=== PATIENT | female | born 1935 | race Caucasian/White ===

== ENCOUNTER 2016-11-19 12:25 | Inpatient (IN) | payer OTHER ==
[~2016-11-19] VITALS: Ht 149.9 cm; Wt 86.1 kg
[~2016-11-19 12:25] MED LIST: ADVAIR HFA120 INHALA IH; AMOX TR-K CLV1 EAC4 PO; AMPICILLIN SODIU2 GM IV; AUGMENTIN875 MG PO; CLEAR EYES ITCH15 ML BOTH EYES; CLEOCIN300 MG PO; COLCRYS0.6 MG PO; CORDARONE200 MG PO; COUMADIN1 MG PO; COUMADIN3 MG PO; COZAAR100 MG PO; FLORASTOR250 MG PO; GENTAMICIN SULFA5 ML BOTH EYES; GUAIFENESI100 MG/5 M PO; INCRUSE ELLI62.5 MCG IH; K-DUR20 MEQ PO; LASIX40 MG PO; LOPRESSOR25 MG PO; LOVENOX80 MG/0.8 SC; MECLIZINE HCL12.5 M1 PO; OCUVITE TABLET1 EACH PO; PRAVASTATIN SOD20 MG PO; PRAVASTATIN SOD40 MG PO; PREDNISONE20 MG PO; PROAIR HFA8.5 GM IH; RANITIDINE HCL150 MG PO; SENNA-TIME S T1 EACH PO; SPIRIVA RESPIMAT4 GM IH; TYLENOL REGULA325 MG PO; VANCOMYCIN HCL1 GM IV; VANCOMYCIN1 GM/150 M IV; VENTOLIN HFA18 GM IH; WARFARIN SODIUM1 MG PO; ZOLPIDEM TARTRAT5 MG PO
[2016-11-19 13:32] LABS: CHLORIDE 100 mEq/L (99-109); POTASSIUM 5.6 mEq/L (3.7-5.4); SODIUM 134 mEq/L (136-147)
[2016-11-19 13:34] LABS: GLUCOSE 149 mg/dL (70-99)
[2016-11-19 13:35] LABS: ANION GAP 12 MEQ/L (2-14); HEMATOCRIT 36.1 % (36.0-46.0); MCHC 32.1 G/DL (30.0-36.0); MCV 87.2 FL (83-99); RBC DIS.WIDTH-CV 18.7 % (11.8-14.6); RBC DIS.WIDTH-SD 58.8 % (39-53); RED BLOOD COUNT 4.14 M/uL (3.80-5.20); WHITE BLOOD COUNT 6.9 K/uL (4.1-10.2)
[2016-11-19 13:38] LABS: GFR ESTIMATE (CALCULATED) 13 mL/min/
[2016-11-19 14:06] LABS: UREA NITROGEN (BUN) 80 mg/dL (9-23)
[2016-11-19 14:20] LABS: TROP-I INTERPRETATION NEGATIVE; TROPONIN-I 0.05 ng/mL (0.0-0.30)
[2016-11-19 14:42] LABS: HEMATOLOGY COMMENT 1 SMEAR COMPATIBLE; PLATELET COUNT 133 K/uL (156-360)
[2016-11-19 16:11] LABS: PTT 44.9 (25-32)
[2016-11-19 16:18] LABS: INTER. NORMALIZED RATIO 4.2; PROTHROMBIN TIME 44.2 (9.2-11.2)
[2016-11-19] MEDS ORDERED: PRAVASTATIN SOD40 MG PO (16:23)
[2016-11-19] MEDS ORDERED: POTASSIUM CHLO10 ME4 PO (16:24)
[2016-11-19] MEDS ORDERED: PRESERVISION T1 EACH PO (16:24)
[2016-11-19] MEDS ORDERED: GENTAMICIN SULFA5 ML RIGHT EYE (16:26)
[2016-11-19] MEDS ORDERED: CEPHALEXIN500 MG PO (16:26)
[2016-11-19] MEDS ORDERED: CARVEDILOL12.5 MG PO (16:27)
[2016-11-19] MEDS ORDERED: MUPIROCIN15 GM TP (16:27)
[2016-11-19] MEDS ORDERED: BUMETANIDE1 MG PO (16:27)
[2016-11-19] MEDS ORDERED: PROTONIX40 MG PO (16:27)
[2016-11-19 18:17] VITALS: BP 156/90
[2016-11-19 20:47] VITALS: BP 83/47
[2016-11-19 23:25] VITALS: BP 87/50
[2016-11-19 23:54] VITALS: BP 62/43
[2016-11-20] VITALS (18 sets, daily range): BP systolic 74–113; BP diastolic 35–55
[2016-11-20 07:33] LABS: ALKALINE PHOSPHATASE 113 IU/L (3-129); ANION GAP 11 MEQ/L (2-14); CHLORIDE 101 MEQ/L (99-109); GFR ESTIMATE (CALCULATED) 12 mL/min/; SAMPLE HEMOLYSIS CHECK 0; SAMPLE ICTERIC CHECK 0; SAMPLE LIPEMIA CHECK 0; SODIUM 134 MEQ/L (136-147); UREA NITROGEN (BUN) 76 mg/dL (9-23)
[2016-11-20 07:34] LABS: GLUCOSE 86 mg/dL (70-99)
[2016-11-20 07:43] LABS: PROTHROMBIN TIME 48.7 (9.2-11.2)
[2016-11-20 07:46] LABS: INTER. NORMALIZED RATIO 4.6
[2016-11-20 08:21] LABS: HEMATOCRIT 33.7 % (36.0-46.0); MCH 27.6 PG (29.0-34.0); MCHC 31.2 G/DL (30.0-36.0); MCV 88.7 FL (83-99); PLATELET COUNT UNABLE TO REPORT K/uL (156-360); RBC DIS.WIDTH-CV 18.9 % (11.8-14.6); RBC DIS.WIDTH-SD 60.6 % (39-53); WHITE BLOOD COUNT 5.8 K/uL (4.1-10.2)
[2016-11-20 10:28] LABS: TROP-I INTERPRETATION NEGATIVE; TROPONIN-I 0.04 ng/mL (0.0-0.30)
[2016-11-20 13:48] LABS: METH RESISTANT S AUREUS PCR NEGATIVE (NEGATIVE)
[2016-11-20 13:51] LABS: PROBE CHECK PASS; SPECIMEN PROCESSING CONTROL PASS
[2016-11-20 17:24] LABS: BASOPHIL COUNT 0.1 K/uL (0-0.1); EOSINOPHIL (%) 1.8 % (0-5); EOSINOPHIL COUNT 0.1 K/uL (0-0.3); HEMATOLOGY COMMENT 1 SMEAR COMPATIBLE; IMMATURE GRANULOCYTE (%) 0.2 % (0.0-0.7); LYMPHOCYTE COUNT 1.2 K/uL (1.0-2.8); MONOCYTE (%) 15.1 % (3-12); MONOCYTE COUNT 0.9 K/uL (0-0.8); NEUTROPHIL (%) 61.3 % (45-76); NEUTROPHIL COUNT 3.7 K/uL (1.8-6.4); PLAT.SUFFICIENCY DECREASED; PLATELET COUNT 101 K/uL (156-360)
[2016-11-20 17:25] LABS: HEMATOCRIT 32.8 % (36.0-46.0); MCH 28.1 PG (29.0-34.0); MCV 87.7 FL (83-99); RBC DIS.WIDTH-CV 18.9 % (11.8-14.6); RBC DIS.WIDTH-SD 61.1 % (39-53); RED BLOOD COUNT 3.74 M/uL (3.80-5.20)
[2016-11-21] VITALS (26 sets, daily range): BP systolic 92–117; BP diastolic 36–66
[2016-11-21 07:22] LABS: HEMATOCRIT 37.4 % (36.0-46.0); MCH 27.8 PG (29.0-34.0); MCHC 31.6 G/DL (30.0-36.0); MCV 88.2 FL (83-99); RBC DIS.WIDTH-CV 18.5 % (11.8-14.6); RED BLOOD COUNT 4.24 M/uL (3.80-5.20)
[2016-11-21 07:31] LABS: BASOPHIL COUNT 0.2 K/uL (0-0.1); EOSINOPHIL (%) 2.2 % (0-5); EOSINOPHIL COUNT 0.2 K/uL (0-0.3); HEMATOLOGY COMMENT 1 SMEAR COMPATIBLE; IMMATURE GRANULOCYTE (%) 0.5 % (0.0-0.7); IMMATURE GRANULOCYTE COUNT 0.1 K/uL; LYMPHOCYTE COUNT 1.8 K/uL (1.0-2.8); MONOCYTE (%) 17.4 % (3-12); MONOCYTE COUNT 1.8 K/uL (0-0.8); NEUTROPHIL (%) 60.6 % (45-76); NEUTROPHIL COUNT 6.2 K/uL (1.8-6.4); PLAT.SUFFICIENCY ADEQUATE
[2016-11-21 07:40] LABS: PLATELET COUNT 149 K/uL (156-360); WHITE BLOOD COUNT 10.2 K/uL (4.1-10.2)
[2016-11-21 08:34] LABS: ALKALINE PHOSPHATASE 94 IU/L (3-129); ANION GAP 13 MEQ/L (2-14); CHLORIDE 99 MEQ/L (99-109); GFR ESTIMATE (CALCULATED) 11 mL/min/; GLUCOSE 138 mg/dL (70-99); MAGNESIUM 2.4 mg/dl (1.3-2.7); POTASSIUM 4.9 MEQ/L (3.7-5.4); SAMPLE HEMOLYSIS CHECK 0; SAMPLE ICTERIC CHECK 0; SAMPLE LIPEMIA CHECK 0; SODIUM 133 MEQ/L (136-147); TOTAL BILIRUBIN 2.7 MG/DL (0.0-1.0); UREA NITROGEN (BUN) 87 mg/dL (9-23); URIC ACID 10.7 mg/dL (3.1-9.2)
[2016-11-21 16:38] LABS: HEMATOLOGY COMMENT 1 UNABLE TO REPORT; USER ID WCD
[2016-11-21 16:39] LABS: BASOPHIL COUNT 0.2 K/uL (0-0.1); EOSINOPHIL (%) 2.2 % (0-5); EOSINOPHIL COUNT 0.2 K/uL (0-0.3); HEMATOCRIT 38.6 % (36.0-46.0); IMMATURE GRANULOCYTE (%) 0.3 % (0.0-0.7); LYMPHOCYTE COUNT 1.8 K/uL (1.0-2.8); MCH 28.2 PG (29.0-34.0); MCHC 32.4 G/DL (30.0-36.0); MCV 86.9 FL (83-99); MONOCYTE (%) 15.9 % (3-12); MONOCYTE COUNT 1.6 K/uL (0-0.8); NEUTROPHIL (%) 62.6 % (45-76); NEUTROPHIL COUNT 6.4 K/uL (1.8-6.4); RBC DIS.WIDTH-CV 18.2 % (11.8-14.6); RBC DIS.WIDTH-SD 58.3 % (39-53); RED BLOOD COUNT 4.44 M/uL (3.80-5.20); WHITE BLOOD COUNT 10.2 K/uL (4.1-10.2)
[2016-11-22] VITALS (24 sets, daily range): BP systolic 81–122; BP diastolic 28–59
[2016-11-22 00:09] LABS: ADD MIUA? YES; BILIRUBIN NEGATIVE; BLOOD NEGATIVE; COLOR YELLOW ((YELLOW)); GLUCOSE (STRIP) NEGATIVE; KETONES 5; LEUKOCYTES NEGATIVE; NITRITE NEGATIVE; PROTEIN (STRIP) NEGATIVE; SPECIFIC GRAVITY 1.014 (1.000-1.030); UROBILINOGEN 0.2 MG/DL (0.2-1.0)
[2016-11-22 00:50] LABS: UR CREATININE CONCENTRATION 151.7 MG/DL
[2016-11-22 01:12] LABS: BACTERIA RARE /HPF; EPITHELIAL CELLS RARE /HPF; MUCUS TRACE /LPF; RED BLOOD CELLS 0-5 /HPF (0-5); WHITE BLOOD CELLS 0-5 /HPF (0-5)
[2016-11-22 06:45] LABS: ANION GAP 10 MEQ/L (2-14); CHLORIDE 98 MEQ/L (99-109); GFR ESTIMATE (CALCULATED) 10 mL/min/; GLUCOSE 122 mg/dL (70-99); POTASSIUM 5.2 MEQ/L (3.7-5.4); SAMPLE HEMOLYSIS CHECK 0; SAMPLE ICTERIC CHECK 0; SAMPLE LIPEMIA CHECK 0; SODIUM 130 MEQ/L (136-147); UREA NITROGEN (BUN) 88 mg/dL (9-23)
[2016-11-22 16:25] LABS: BASOPHIL COUNT 0.1 K/uL (0-0.1); EOSINOPHIL (%) 1.3 % (0-5); EOSINOPHIL COUNT 0.1 K/uL (0-0.3); IMMATURE GRANULOCYTE (%) 0.6 % (0.0-0.7); IMMATURE GRANULOCYTE COUNT 0.1 K/uL; LYMPHOCYTE COUNT 1.6 K/uL (1.0-2.8); MCH 28.2 PG (29.0-34.0); MCHC 32.6 G/DL (30.0-36.0); MCV 86.5 FL (83-99); MONOCYTE (%) 18.9 % (3-12); NEUTROPHIL (%) 62.6 % (45-76); NEUTROPHIL COUNT 6.6 K/uL (1.8-6.4); PLAT.SUFFICIENCY DECREASED; PLATELET COUNT 113 K/uL (156-360); RBC DIS.WIDTH-CV 18.3 % (11.8-14.6); RBC DIS.WIDTH-SD 57.7 % (39-53); RED BLOOD COUNT 4.51 M/uL (3.80-5.20); USER ID VLB; WHITE BLOOD COUNT 10.5 K/uL (4.1-10.2)
[2016-11-22 22:55] LABS: BASE EXCESS -7.8 mEq/L (-3 to +3); BICARBONATE 19.7 mEq/L (22-26); CARBOXY HGB 2.5 % (0-5); METHEMOGLOBIN 1.6 % (0-1.5); PCO2 47 mm Hg (35-45); PO2 64 mm Hg (80-100)
[2016-11-22 22:56] LABS: DEVICE NCH; O2 FLOW 15 L/MIN; SITE LB; TOTAL RESP RATE 20 resp/min; pH 7.23 (7.35-7.45)
[2016-11-23] VITALS (15 sets, daily range): BP systolic 61–112; BP diastolic 33–53
[2016-11-23 06:43] LABS: ANION GAP 14 MEQ/L (2-14); GFR ESTIMATE (CALCULATED) 10 mL/min/; POTASSIUM 4.6 MEQ/L (3.7-5.4); SAMPLE HEMOLYSIS CHECK 0; SAMPLE ICTERIC CHECK 0; SAMPLE LIPEMIA CHECK 0; UREA NITROGEN (BUN) 90 mg/dL (9-23)
[2016-11-23 06:45] LABS: CHLORIDE 88 MEQ/L (99-109); GLUCOSE 448 mg/dL (70-99); SODIUM 120 MEQ/L (136-147)
[2016-11-23 09:04] LABS: POINT-OF-CARE METER ID UU14162636
== END 2016-11-24 15:42 | DRG 682 ==
LOC: EME 12:25 → EDOF 16:00 → 5SOUTH 16:00 → 4WEST 16:00 → 5SOUTH 17:58 → 4WEST 11-20 12:06 → 5EAST 11-23 15:28
PROVIDERS: Anesthesiology; Emergency Medicine; Hospitalist; Internal Medicine; Internal Medicine Nephrology; Internal Medicine Pulmonary Disease
DX: N17.9 Acute kidney failure, unspecified (principal); I13.0 Hypertensive heart and chronic kidney disease with heart failure and stage 1 through stage 4 chronic kidney disease, or unspecified chronic kidney disease; J96.21 Acute and chronic respiratory failure with hypoxia; I27.81 Cor pulmonale (chronic); I50.43 Acute on chronic combined systolic (congestive) and diastolic (congestive) heart failure; J44.0 Chronic obstructive pulmonary disease with (acute) lower respiratory infection; I95.9 Hypotension, unspecified; D68.9 Coagulation defect, unspecified; E87.2 Acidosis; I42.9 Cardiomyopathy, unspecified; I48.2 Chronic atrial fibrillation; N18.3 Chronic kidney disease, stage 3 (moderate); E86.0 Dehydration; I27.2 Other secondary pulmonary hypertension; Z51.5 Encounter for palliative care; Z95.2 Presence of prosthetic heart valve; I08.2 Rheumatic disorders of both aortic and tricuspid valves; Z99.81 Dependence on supplemental oxygen; J20.9 Acute bronchitis, unspecified; I45.10 Unspecified right bundle-branch block; E88.09 Other disorders of plasma-protein metabolism, not elsewhere classified
CPT/HCPCS: 36415; 36600; 71010; 71020; 76770; 80048; 80053; 80069; 81003; 82533 91; 82570; 82803; 82948; 83605; 83735; 83880; 84100; 84156; 84300; 84484; 84550; 85025; 85025 91; 85027; 85610; 85730; 87641; 93005; 93306; 94640 76; 94799; 99281; 99284; J1265; J1940; J2060; J2260; J2270; J2405; J7030; J7040; P9045; P9047